=== PATIENT | female | born 1990 | race Hispanic/Latino ===

== ENCOUNTER 2018-10-18 06:46 | Day surgery (SDC) | payer MEDICAID ==
[2018-10-17 12:14] LABS: BASOPHILS % (AUTO) 1.1 % (0.0-5.0); EOSINOPHILS % (AUTO) 6.6 % (0.0-8.0); HEMATOCRIT 43.2 % (36-48); LYMPHOCYTES % (AUTO) 28.1 % (21.0-51.0); MEAN CORPUSCULAR HEMOGLOBIN 29.4 pg (27.0-33.0); MEAN CORPUSCULAR VOLUME 88.9 fL (79-99); NEUTROPHILS % (AUTO) 57.2 % (40.0-77.0); NUCLEATED RED BLOOD CELLS 0.1 % (0.0-0.19); PLATELET COUNT (AUTO) 277 K/uL (130-400); RED BLOOD CELL COUNT(AUTO) 4.86 MIL/uL (4.00-5.50); RED CELL DISTRIBUTION WIDTH 12.9 % (11.0-15.5); WHITE BLOOD COUNT (AUTO) 7.6 K/uL (4.8-10.8)
[2018-10-17 12:25] VITALS: BP 105/71
[2018-10-18] VITALS (13 sets, daily range): BP systolic 97–114; BP diastolic 41–72
[~2018-10-18] VITALS: Ht 152.4 cm; Wt 40.6 kg
[2018-10-18] MEDS ORDERED: BUPIVACAINE/PF 0.25% 30ML VIAL IJ ONE (06:47)
[2018-10-18] MEDS: CEFAZOLIN SODIUM 1 GM VIAL ONE ×2 (07:35→09:40)
[2018-10-18] MEDS ORDERED: LACTATED RINGERS 1000ML 1,000 ML IV ONE (07:36)
[2018-10-18] MEDS ORDERED: ROPIVACAINE 0.5% 5MG/ML 30ML IJ ONE (08:22)
[2018-10-18] MEDS ORDERED: SCOPOLAMINE HYDROBROMIDE 1 EACH ADH..PATCH TD ONE (09:23)
[2018-10-18] MEDS ORDERED: PROPOFOL 10 MG/ML 20ML VIAL IV ONE (09:27)
[2018-10-18] MEDS ORDERED: GLYCOPYRROLATE 1 MG/5 ML SYRINGE ONE (09:27)
[2018-10-18] MEDS ORDERED: DEXAMETHASONE SOD PHOSPHATE 10MG/ML 1ML VIAL ONE (09:27)
[2018-10-18] MEDS ORDERED: MIDAZOLAM HCL 1 MG/ML 2ML VIAL ONE (09:27)
[2018-10-18] MEDS ORDERED: NEOSTIGMINE 5MG/5ML SYR IV ONE (09:27)
[2018-10-18] MEDS ORDERED: SUCCINYLCHOLINE 200MG/10ML SYR ONE (09:27)
[2018-10-18] MEDS ORDERED: ONDANSETRON HCL 4 MG/2 ML VIAL ONE ×2 (09:27→10:55)
[2018-10-18] MEDS ORDERED: LIDOCAINE PF 2% 5ML ABBOJECT ONE (09:27)
[2018-10-18] MEDS ORDERED: FENTANYL CITRATE PF 50 MCG/1 ML 2ML VIAL ONE ×2 (09:28→11:02)
[2018-10-18] MEDS ORDERED: ROCURONIUM 10MG/1ML SYR 10 MG/ML ML ONE (09:28)
[2018-10-18] MEDS ORDERED: METHYLENE BLUE 10 MG/ML AMP ONE (10:02)
[2018-10-18] MEDS ORDERED: METOCLOPRAMIDE 10 MG/2 ML VIAL ONE (10:59)
== END 2018-10-18 12:35 | disposition home or self-care (01) ==
LOC: DAH 06:46
PROVIDERS: ATTEND Obstetrics & Gynecology
DX: R10.31 Right lower quadrant pain (principal); N94.10 Unspecified dyspareunia; N73.6 Female pelvic peritoneal adhesions (postinfective); K50.90 Crohn's disease, unspecified, without complications; Z98.890 Other specified postprocedural states; Z79.899 Other long term (current) drug therapy
CPT/HCPCS: 36415; 49320; 58350; 84703; 85025; 86850; 86900; 86901; A4218; A4351; A4510; A4600; A4649; A4930; C1769 ×2; J0330; J0690; J1100; J2001; J2250; J2405 ×2; J2704; J2710; J2765; J2795; J3010 ×2; J3490 ×2; J7030; J7120; Q9968

== ENCOUNTER 2019-12-19 06:01 | Inpatient (IN) | payer MEDICAID ==
[2019-12-19] VITALS (13 sets, daily range): BP systolic 96–114; BP diastolic 43–69
[2019-12-19] MEDS ORDERED: LACTATED RINGERS 1000ML 1,000 ML IV SCH (06:15)
[2019-12-19] MEDS ORDERED: CEFAZOLIN SODIUM 1 GM VIAL IVP PRN (06:15)
[2019-12-19 06:47] LABS: HEMATOCRIT 36.4 % (36-48); MEAN CORPUSCULAR HEMOGLOBIN 29.8 pg (27.0-33.0); MEAN CORPUSCULAR HGB CONC 33.5 g/dL (32.0-36.0); MEAN CORPUSCULAR VOLUME 88.8 fL (79-99); RED BLOOD CELL COUNT(AUTO) 4.1 MIL/uL (4.00-5.50); RED CELL DISTRIBUTION WIDTH 13.5 % (11.0-15.5); WHITE BLOOD COUNT (AUTO) 8.9 K/uL (4.8-10.8)
[2019-12-19] MEDS ORDERED: CALDOLOR 800MG+NS 250ML 250 ML IV ONE (07:15)
[2019-12-19] MEDS ORDERED: CEFAZOLIN SODIUM 1 GM VIAL ONE (07:15)
[2019-12-19] MEDS ORDERED: ONDANSETRON HCL 4 MG/2 ML VIAL ONE ×2 (07:17→11:16)
[2019-12-19] MEDS ORDERED: DURAMORPH PF1 MG/ML 10ML AMP IV ONE (07:17)
[2019-12-19] MEDS ORDERED: OXYTOCIN 10 UNIT/1ML 10ML VIAL ONE (07:17)
[2019-12-19] MEDS ORDERED: FENTANYL CITRATE PF 50 MCG/1 ML 2ML VIAL ONE (07:18)
[2019-12-19] MEDS ORDERED: CEFAZOLIN SODIUM 1 GM VIAL IVP ONE (07:40)
[2019-12-19] MEDS ORDERED: PHENYLEPHRINE HCL 10 MG/ML 1ML VIAL IV ONE (07:56)
[2019-12-19] MEDS ORDERED: DEXTROSE 5 %-0.45 % NACL 1,000 ML IV PRN (08:45)
[2019-12-19] MEDS ORDERED: MEPERIDINE-PF 75 MG/ML SYG IM PRN (08:45)
[2019-12-19] MEDS ORDERED: PROMETHAZINE HCL 25 MG/ML 1ML AMPULE IM PRN (08:45)
[2019-12-19] MEDS ORDERED: SODIUM CHLORIDE 0.9% 10 ML VIAL IVP PRN (08:45)
[2019-12-19] MEDS ORDERED: OXYTOCIN-LR 20 UNITS/1000 ML 1,000 ML IV PRN (08:45)
[2019-12-19] MEDS ORDERED: PREN1TAB26 PO (12:42)
[2019-12-19] MEDS ORDERED: NALOXONE HCL 0.4 MG/1 ML ML IVP PRN ×2 (16:15)
[2019-12-19] MEDS ORDERED: DiphenhydrAMINE HCL 50 MG/ML VIAL IVP PRN (16:15)
[2019-12-19] MEDS ORDERED: ONDANSETRON HCL 4 MG/2 ML VIAL IVP PRN (16:15)
[2019-12-19] MEDS: CALDOLOR 800MG+NS 250ML 250 ML IV SCH (16:40)
[2019-12-20 00:01] VITALS: BP 99/56
[2019-12-20] MEDS: CALDOLOR 800MG+NS 250ML 250 ML IV SCH (00:20)
[2019-12-20 03:33] VITALS: BP 93/56
[2019-12-20] MEDS ORDERED: DIPH,PERTUSS(ACELL),TET VAC/PF 0.5 ML VIAL IM ONE (05:15)
--- NOTE | 2019-12-20 06:35 | NUR ---
KEITH REARDON DC'D, CATHETER TIP INTACT. PT. UP IN CHAIR BY HERNANDEZ (PCP). INST TO CALL FOR ASSIST BEFORE GETTING UP TO BR; VERBALIZED UNDERSTANDING, Addendum: 12/20/19 at 0646 by PIPPA DAVALOS RN RN Amended: Links added.
[2019-12-20 07:01] LABS: HEMATOCRIT 35.9 % (36-48); MEAN CORPUSCULAR HEMOGLOBIN 30.5 pg (27.0-33.0); MEAN CORPUSCULAR HGB CONC 32.9 g/dL (32.0-36.0); MEAN CORPUSCULAR VOLUME 92.8 fL (79-99); RED BLOOD CELL COUNT(AUTO) 3.87 MIL/uL (4.00-5.50); RED CELL DISTRIBUTION WIDTH 13.7 % (11.0-15.5); WHITE BLOOD COUNT (AUTO) 14.9 K/uL (4.8-10.8)
[2019-12-20 07:54] VITALS: BP 88/49
[2019-12-20 08:09] LABS: HEPATITIS Bs ANTIGEN SCREEN P Negative (Negative)
[2019-12-20] MEDS ORDERED: ACETAMINOPHEN-CODEINE 300/30MG TAB PO PRN (08:45)
[2019-12-20] MEDS ORDERED: SIMETHICONE 80 MG TAB.CHEW PO PRN (08:45)
[2019-12-20] MEDS ORDERED: LANOLIN 30GM OINTMENT TP PRN (08:45)
[2019-12-20] MEDS ORDERED: HYDROCODONE/ACETAMINOPHEN 5/325 MG TAB PO PRN (08:45)
[2019-12-20] MEDS ORDERED: BISACODYL 10 MG SUPP.RECT RC PRN (08:45)
[2019-12-20] MEDS ORDERED: ACETAMINOPHEN EXTRA STRENGTH 500 MG TABLET PO PRN (08:45)
[2019-12-20] MEDS ORDERED: DOCUSATE SODIUM 100 MG CAP PO SCH (09:00)
[2019-12-20] MEDS ORDERED: DOCUSATE SODIUM 100 MG CAP PO ONE (09:24)
[2019-12-20] MEDS ORDERED: SIMETHICONE 80 MG TAB.CHEW ONE (09:24)
--- NOTE | 2019-12-20 09:45 | NUR ---
VERBALIZED HAVING PAIN AND WAS MEDICATED WITH MOTRIN. PATIENT STATES HAVING PAIN OF 8 BUT DOES NOT WANT TYLENOL #3 OR NORCO. ENCOURAGED PATIENT TO TAKE A NARCOTIC IF PAIN DOES NOT GET BETTER.
[2019-12-20] MEDS: IBUPROFEN 800 MG TAB PO SCH ×2 (09:52→16:07)
[2019-12-20 12:00] VITALS: BP 105/62
[2019-12-20 16:00] VITALS: BP 103/63
--- NOTE | 2019-12-20 16:30 | NUR ---
PATIENT WAS GIVEN DISCHARGE INSTRUCTIONS AND WAS ALSO GIVEN MOTRIN FOR DISCOMFORT. VERBALIZED UNDERSTANDIBNG INSTRUCTIONS GIVEN.
--- NOTE | 2019-12-20 17:00 | NUR ---
PATIENT HAD A BM AND STATES PASSING GAS. ENCOURAGED TO WALK IN HALLWAY.
--- NOTE | 2019-12-20 18:00 | NUR ---
PATIENT WAS TAKE VIA W/C TO [facility] [employer] [facility] IN [place]. PATIENT DENIES DIZZINESS AND STATES FEELING BETTER AFTER HAVING A BM.
== END 2019-12-20 18:00 | disposition home or self-care (01) | DRG 539 ==
LOC: LDH 06:01 → EDSTATUS 07:30 → WSH 09:40
PROVIDERS: ADMIT Obstetrics & Gynecology; ATTEND Obstetrics & Gynecology
PROC: 0UB70ZZ Excision of Bilateral Fallopian Tubes, Open Approach (ICD-10-PCS; 2019-12-19)
PROC: 10D00Z1 Extraction of Products of Conception, Low, Open Approach (ICD-10-PCS; principal; 2019-12-19 07:30)
PROC: 3E0234Z Introduction of Serum, Toxoid and Vaccine into Muscle, Percutaneous Approach (ICD-10-PCS; 2019-12-20)
DX: O34.211 Maternal care for low transverse scar from previous cesarean delivery (principal); O69.81X0 Labor and delivery complicated by cord around neck, without compression, not applicable or unspecified; Z30.2 Encounter for sterilization; Z3A.39 39 weeks gestation of pregnancy; Z37.0 Single live birth; Z23 Encounter for immunization
CPT/HCPCS: 36415; 59510; 85027; 86592; 86850; 86900; 86901; 87340; 88302; 90715; A4344; G0378; J0690; J1741; J2274; J2370; J2405; J2590; J3010; J7120